=== PATIENT | female | born 1950 | race Caucasian/White ===

== ENCOUNTER 2023-08-30 12:46 | Inpatient (IN) | payer OTHER, MEDICARE ==
[~2023-08-30] VITALS: Ht 167.6 cm; Wt 97.5 kg
[~2023-08-30 12:46] MED LIST: CYCL10; POTCHL20ER; TRAM50; TRAZ50
[2023-08-30 17:19] VITALS: BP 173/95
[2023-08-30] MEDS ORDERED: ELIQUIS5 M3 (18:00)
[2023-08-30] MEDS ORDERED: TRAM50 PO (18:01)
[2023-08-30] MEDS ORDERED: Bentyl10 MG (18:01)
[2023-08-30] MEDS ORDERED: NEURONTIN300 MG PO (18:02)
[2023-08-30] MEDS ORDERED: MONT10T (18:02)
[2023-08-30] MEDS ORDERED: METOPROLOL SUCC25 MG PO (18:03)
[2023-08-30] MEDS ORDERED: Doxepin HC10 MG/1 ML PO (18:04)
--- NOTE | 2023-08-30 18:31 | NUR ---
SHIFT SUMMARY NEW ADMIT THIS AFTERNOON FOR R HIP FX, NPO AFTER MIDNIGHT.MEDICATED FOR PAIN, DR HAWKINS AND ANESTHESIA CAME TO BEDSIDE FOR NERVE BLOCK. PATIENT PAIN MANAGED AND ADMISSION HX FINISHED.VSS, ON 2L NC SATS 95%. PAIN 12/15.R LEG EXTERNALLY ROTATED AND SHORTENED. BED ALARM ON FOR SAFETY CALL LIGHT IN REACH.
[2023-08-30 19:07] VITALS: BP 156/88
[2023-08-31] VITALS (18 sets, daily range): BP systolic 94–138; BP diastolic 56–83
[2023-08-31 04:47] LABS: BASOPHILS ABSOLUTE AUTO 0.04 K/mm3 (0.00-0.23); BASOPHILS PERCENT AUTO 1 % (0-2); EOSINOPHILS ABSOLUTE AUTO 0.04 K/mm3 (0.00-0.68); EOSINOPHILS PERCENT AUTO 1 % (0-6); Hematocrit 37.6 % (33.0-51.0); Hemoglobin 12.3 g/dL (11.5-16.0); IMMATURE GRAN ABSOLUTE AUTO 0.02 K/mm3 (0.00-0.10); IMMATURE GRAN PERCENT AUTO 0 % (0-1); LYMPHOCYTES ABSOLUTE AUTO 0.84 K/mm3 (0.84-5.20); LYMPHOCYTES PERCENT AUTO 11 % (21-46); MONOCYTES ABSOLUTE AUTO 0.42 K/mm3 (0.16-1.47); MONOCYTES PERCENT AUTO 5 % (4-13); Mean Corpuscular HGB 29.9 pg (26.0-34.0); Mean Corpuscular HGB Conc 32.7 g/dL (31.5-36.5); Mean Corpuscular Volume 92 fL (80-100); Mean Platelet Volume 9.7 fL (9.1-12.4); NEUTROPHILS ABSOLUTE AUTO 6.65 K/mm3 (1.96-9.15); NEUTROPHILS PERCENT AUTO 83 % (41-73); Platelet Count 190 K/mm3 (150-400); RDW Coefficient Variation 11.9 % (11.7-14.2); RDW Standard Deviation 39.8 fL (35.1-46.3); Red Blood Cell Count 4.11 M/mm3 (3.80-5.20); White Blood Cell Count 8.01 K/mm3 (4.00-11.30)
[2023-08-31 05:36] LABS: Albumin, Blood 3.1 g/dL (3.4-5.0); Albumin/Globulin Ratio 1.1 (0.8-1.8); Bilirubin, Total 0.6 mg/dL (0.1-1.0); Calcium, Blood 8.9 mg/dL (8.5-10.1); Globulin, Blood 2.9 g/dL (2.2-4.0); Potassium, Blood 4.1 mmol/L (3.5-5.5)
--- NOTE | 2023-08-31 06:45 | NUR ---
SHIFT SUMMARY PT DID WELL OVERNIGHT WITH PAIN BEING CONTROLLED WITH BOTH IV AND PO MEDICATIONS. PT REPORTED NO NAUSEA THIS SHIFT. BLOOD CONSENT FORM SIGNED FOR POTENTIAL PROCEDURE TODAY. PT NPO SINCE MIDNIGHT.
--- NOTE | 2023-08-31 12:25 | NUR ---
PATIENT IS BEING TAKEN DOWN TO THE OR.
--- NOTE | 2023-08-31 15:26 | NUR ---
PATIENT ARRIVED FROM PACU TODAY. POD 0 RIGHT ANNA HIP PATIENT IS DROWSY BUT RESPONDS TO VERBAL STIMULI. SHE IS ON 2L NC WITH >90% OXYGEN SATS. HER RIGHT HIP HAS AN AQUACEL THAT IS C/D/I. SHE IS ABLE TO MOVE ALL FINGERS AND TOES WHEN ASKED. SHE IS TOLERATING SMALL AMOUNTS OF PO INTAKE. SHE IS LAYING IN BED WITH CALL LIGHT IN REACH AND DAUGHTER AT BEDSIDE.
--- NOTE | 2023-08-31 17:10 | NUR ---
SHIFT SUMMARY: POD 0 RIGHT ANNA HIP - POSTERIOR PATIENT IS DROWSY BUT RESPONDS TO VERBAL STIMULI. VS ARE WNL. PAIN IS MANAGED WITH PO OXY AT THIS TIME. HER RIGHT HIP HAS AN AQUACEL THAT IS C/D/I. SHE IS ABLE TO MOVE ALL FINGERS AND TOES WHEN ASKED. DENIES NUMBNESS OR TINGLING. SHE IS TOLERATING SMALL AMOUNTS OF PO INTAKE. SHE IS LAYING DOWN IN BED WITH CALL LIGHT IN REACH AND DAUGHTER AT BEDSIDE. THE PLAN IS TO CONTINUE PAIN MANAGEMENT AND TO BE EVALUATED BY PHYSICAL/OCCUPATIONAL THERAPY.
--- NOTE | 2023-08-31 23:32 | NUR ---
PT REFUSED STAFF TO RECHECK BP. RN NOTIFIED
[2023-09-01 04:07] VITALS: BP 112/66
[2023-09-01 04:14] LABS: BASOPHILS ABSOLUTE AUTO 0.01 K/mm3 (0.00-0.23); BASOPHILS PERCENT AUTO 0 % (0-2); EOSINOPHILS PERCENT AUTO 0 % (0-6); Hematocrit 33.2 % (33.0-51.0); Hemoglobin 11.1 g/dL (11.5-16.0); IMMATURE GRAN ABSOLUTE AUTO 0.02 K/mm3 (0.00-0.10); IMMATURE GRAN PERCENT AUTO 0 % (0-1); LYMPHOCYTES ABSOLUTE AUTO 0.45 K/mm3 (0.84-5.20); LYMPHOCYTES PERCENT AUTO 5 % (21-46); MONOCYTES ABSOLUTE AUTO 0.41 K/mm3 (0.16-1.47); MONOCYTES PERCENT AUTO 4 % (4-13); Mean Corpuscular HGB 30.7 pg (26.0-34.0); Mean Corpuscular HGB Conc 33.4 g/dL (31.5-36.5); Mean Corpuscular Volume 92 fL (80-100); Mean Platelet Volume 9.6 fL (9.1-12.4); NEUTROPHILS ABSOLUTE AUTO 9.08 K/mm3 (1.96-9.15); NEUTROPHILS PERCENT AUTO 91 % (41-73); Platelet Count 171 K/mm3 (150-400); RDW Coefficient Variation 11.7 % (11.7-14.2); RDW Standard Deviation 39.8 fL (35.1-46.3); Red Blood Cell Count 3.61 M/mm3 (3.80-5.20); White Blood Cell Count 9.97 K/mm3 (4.00-11.30)
[2023-09-01 04:50] LABS: Bun/Creatinine Ratio 17.6 (12.0-20.0); Calcium, Blood 8.8 mg/dL (8.5-10.1); Creatinine, Blood 1.02 mg/dL (0.40-1.00); Potassium, Blood 4.4 mmol/L (3.5-5.5)
--- NOTE | 2023-09-01 06:32 | NUR ---
SHIFT SUMMMARY NO ACUTE CHANGES TO REPORT OVERNIGHT, PT HAS RESTED OFF AND ON T/O THE SHIFT. S/P RIGHT HIP REPAIR. PT VERY PAINFUL WITH MOVEMENT. MEDICATED FOR PAIN PER EMAR. DRESSING C/D/I TO RIGHT HIP. PT DENIES N/T IN EXT, ABLE TO WIGGLE TOES. PT WEARS HOME CPAP T/O THE NIGHT. PT OCCASIONALLY DIPPED DOWN INTO THE UPPER 80'S. CALLED RT AND NOTIFIED. THEY RECOMMENDED O2 BLEED IN. PT REFUSED TO HAVE O2 SET UP WITH CPAP, STATING THAT IT MAKES HER NOSE DRY. PT EVENTUALLY TOOK CPAP OFF AND SLEPT WITHOUT IT. TEA BIOX IN PLACE. SATS MAINTAINED WNL WITHOUT CPAP. PT TOLERATING PO INTAKE, AND IS VOIDING ADEQUATELY. BED IN LOWEST POSITION, CALL LIGHT WITHIN REACH.
[2023-09-01 07:32] VITALS: BP 125/64
[2023-09-01 16:22] VITALS: BP 107/66
--- NOTE | 2023-09-01 16:50 | NUR ---
PT AOX4 AND COOPERATIVE OF CARE. PT HAS BEEN DOING WELL TODAY. TREATING R HIP PAIN PER MASON DUMONT DOING WELL AT THIS TIME. NO DISTRESS NOTED WHEN AT REST. PT DOES HAVE PAIN RATED AT A 7 WHEN PT WAS WORKING WITH HER TO STAND. PT WAS STILL WILLING TO DO WHAT SHE NEEDED TO. CALL LIGHT IS WITHIN REACH WILL CONTINUE TO MONITOR.
--- NOTE | 2023-09-01 17:39 | NUR ---
CARE PASSED OVER TO PHYLLIS FROST.
[2023-09-01 18:31] VITALS: BP 98/59
--- NOTE | 2023-09-01 19:12 | NUR ---
SHIFT SUMMARY TOOK OVER CARE AT 1740, PT A&OX4, CHARLETTE, 2 PP SBA TRANSFER FROM CHAIR TO BED, PAIN TREATED PER EMAR. REPORT TO RICARDO FERGUSON.
[2023-09-02 03:13] VITALS: BP 125/67
[2023-09-02 04:27] LABS: BASOPHILS ABSOLUTE AUTO 0.02 K/mm3 (0.00-0.23); BASOPHILS PERCENT AUTO 0 % (0-2); EOSINOPHILS ABSOLUTE AUTO 0.17 K/mm3 (0.00-0.68); EOSINOPHILS PERCENT AUTO 3 % (0-6); Hemoglobin 10.7 g/dL (11.5-16.0); IMMATURE GRAN ABSOLUTE AUTO 0.01 K/mm3 (0.00-0.10); IMMATURE GRAN PERCENT AUTO 0 % (0-1); LYMPHOCYTES ABSOLUTE AUTO 0.68 K/mm3 (0.84-5.20); LYMPHOCYTES PERCENT AUTO 12 % (21-46); MONOCYTES ABSOLUTE AUTO 0.35 K/mm3 (0.16-1.47); MONOCYTES PERCENT AUTO 6 % (4-13); Mean Corpuscular HGB 30.9 pg (26.0-34.0); Mean Corpuscular HGB Conc 33.4 g/dL (31.5-36.5); Mean Corpuscular Volume 93 fL (80-100); Mean Platelet Volume 9.7 fL (9.1-12.4); NEUTROPHILS PERCENT AUTO 79 % (41-73); Platelet Count 157 K/mm3 (150-400); RDW Coefficient Variation 11.9 % (11.7-14.2); Red Blood Cell Count 3.46 M/mm3 (3.80-5.20); White Blood Cell Count 5.83 K/mm3 (4.00-11.30)
[2023-09-02 04:51] LABS: Albumin, Blood 2.5 g/dL (3.4-5.0); Anion Gap 4 mmol/L (6-16); Blood Urea Nitrogen 19 mg/dL (8-24); Bun/Creatinine Ratio 17.9 (12.0-20.0); CO2, Blood 28 mmol/L (21-32); Calcium, Blood 8.6 mg/dL (8.5-10.1); Chloride, Blood 110 mmol/L (98-108); Creatinine, Blood 1.06 mg/dL (0.40-1.00); Glomerular Filtration Rate 56 (60-); Glucose, Blood 88 mg/dL (70-99); Phosphorus, Blood 2.7 mg/dL (2.5-4.9); Potassium, Blood 3.9 mmol/L (3.5-5.5); Sodium, Blood 142 mmol/L (136-145)
--- NOTE | 2023-09-02 05:21 | NUR ---
SHIFT SUMMARY NO ACUTE CHANGES TO REPORT OVERNIGHT. PT COMPLAINS OF R HIP/LEG PAIN THAT IS RELEIVED WITH MEDS PER EMAR. PT HAS BEEN UP TO THE BSC WITH 2 PA, PT PAINFUL AND MOVES SLOWLY, BUT IS ABLE TO MAKE IT TO THE COMMODE AND BACK WITH MODERATE ASSIST. VITALS ARE STABLE. DRESSING C/D/I TO RIGHT. PLAN IS FOR DC SNF. BED IN LOWEST POSITION, CALL LIGHT WITHIN REACH.
[2023-09-02 08:08] VITALS: BP 131/77
--- NOTE | 2023-09-02 11:19 | NUR ---
HOSPITALIST DR PATTEN REP PT C/O INCREASED PAIN POSTOP, ASKS ME TO CONTACT DR HAWKINS RE SAME. TELEPHONE CALL WITH DR HAWKINS; ASKED ME TO ASK PT IF SHE FELL OR HAD ANYTHING UNUSUAL HAPPEN POSTOP? PT STATED NO. CAN PT STILL PARTICIPATE IN THERAPY AND GET OUT OF BED? YES, PT CAN AMB WITH SBA AND FWW/GB. DR HAWKINS STATED AND I RELAYED TO PT THAT IT MOST LIKELY IS POD2 EFFECT OF THE LOCAL BLOCK WEARING OFF.
[2023-09-02] MEDS ORDERED: Acetaminophen650 M1 PO (14:40)
[2023-09-02] MEDS ORDERED: Robaxin750 MG PO (14:42)
[2023-09-02 15:05] VITALS: BP 111/67
--- NOTE | 2023-09-02 18:15 | NUR ---
SHIFT SUMMARY PT A&OX4, VSS/RA, CHARLETTE PO, VOIDING/BSC, AMB SBA FWW, UP TO CHAIR T/O SHIFT, PAIN MANAGED WITH PO PAIN MEDS. POD2 R ANNA HIP, AQUACEL DRY/INTACT, WBAT. WILL REPORT TO ONCOMING NOC RN.
[2023-09-02 19:41] VITALS: BP 119/70
[2023-09-03 03:50] VITALS: BP 112/62
[2023-09-03 04:14] LABS: BASOPHILS ABSOLUTE AUTO 0.05 K/mm3 (0.00-0.23); BASOPHILS PERCENT AUTO 1 % (0-2); EOSINOPHILS ABSOLUTE AUTO 0.27 K/mm3 (0.00-0.68); EOSINOPHILS PERCENT AUTO 5 % (0-6); Hematocrit 31.6 % (33.0-51.0); Hemoglobin 10.4 g/dL (11.5-16.0); IMMATURE GRAN ABSOLUTE AUTO 0.03 K/mm3 (0.00-0.10); IMMATURE GRAN PERCENT AUTO 1 % (0-1); LYMPHOCYTES ABSOLUTE AUTO 1.08 K/mm3 (0.84-5.20); LYMPHOCYTES PERCENT AUTO 22 % (21-46); MONOCYTES ABSOLUTE AUTO 0.41 K/mm3 (0.16-1.47); MONOCYTES PERCENT AUTO 8 % (4-13); Mean Corpuscular HGB 30.9 pg (26.0-34.0); Mean Corpuscular HGB Conc 32.9 g/dL (31.5-36.5); Mean Corpuscular Volume 94 fL (80-100); Mean Platelet Volume 10.2 fL (9.1-12.4); NEUTROPHILS ABSOLUTE AUTO 3.14 K/mm3 (1.96-9.15); NEUTROPHILS PERCENT AUTO 63 % (41-73); Platelet Count 189 K/mm3 (150-400); RDW Coefficient Variation 11.9 % (11.7-14.2); RDW Standard Deviation 40.9 fL (35.1-46.3); Red Blood Cell Count 3.37 M/mm3 (3.80-5.20); White Blood Cell Count 4.98 K/mm3 (4.00-11.30)
--- NOTE | 2023-09-03 07:48 | NUR ---
POD 3 S/P RIGHT ANNA HIP. PT VSS T/O NIGHT. DRESSING CDI, W/MILD BRUISING AND SWELLING NOTED. PT DENIED N/T, CAP REFILL WNL. PAIN MGD PER EMAR W/REP RELIEF. PT UP OOB W/FWW+1 MOD ASSIST. PLAN TO MOBILIZE W/PT AND AWAIT DC PLANS.
[2023-09-03 07:49] VITALS: BP 120/71
[2023-09-03 14:56] VITALS: BP 137/72
--- NOTE | 2023-09-03 18:00 | NUR ---
SHIFT SUMMARY POD3 R HIP PINNING.DANDRE TO R HIP C/D/I. WORKED WITH PT AND OT TODAY. TOLERATING PO INTAKE AND PAIN MANAGED WITH PO MEDICATIONS. AWAITING SNF PLACEMENT. PATIENT IS A 1 SBA W/GB, AND FWW. IV SALINE LOCKED. VSS, CALL LIGHT IN REACH.
[2023-09-03 19:51] VITALS: BP 111/67
[2023-09-04 04:41] VITALS: BP 136/78
--- NOTE | 2023-09-04 05:02 | NUR ---
SHIFT SUMMARY POD4 RIGHT ANNA HIP. AQUACEL IS C/D/I. SENSATION AND CIRCULATION IS INTACT IN RLE. VSS. PT SLEPT WELL T/O THE NIGHT. MEDICATED FOR PAIN WITH TRAMADOL AND TYLENOL. PT AMBULATING TO BATHROOM AND VOIDING W/O DIFFICULTY. NO ACUTE EVENTS T/O THE NIGHT. PLAN TO D/C TO [facility] UPON INSURANCE APPROVAL. THE PATIENT IS CURRENTLY RESTING, IN NO DISTRESS, CALL LIGHT IN REACH
[2023-09-04 08:04] VITALS: BP 141/89
[2023-09-04 15:16] VITALS: BP 171/82
[2023-09-04 16:24] VITALS: BP 136/80
== END 2023-09-04 17:15 | DRG 522 ==
LOC: ER 12:46 → SURS 15:56
PROVIDERS: Family Medicine; Orthopaedic Surgery; ADMIT Internal Medicine
PROC: 0SRR01Z Replacement of Right Hip Joint, Femoral Surface with Metal Synthetic Substitute, Open Approach (ICD-10-PCS; principal; 2023-08-31 12:30)
DX: S72.031A Displaced midcervical fracture of right femur, initial encounter for closed fracture (principal); G89.29 Other chronic pain; M79.7 Fibromyalgia; K58.9 Irritable bowel syndrome, unspecified; E66.9 Obesity, unspecified; G47.30 Sleep apnea, unspecified; I48.91 Unspecified atrial fibrillation; M19.90 Unspecified osteoarthritis, unspecified site; G47.00 Insomnia, unspecified; G43.909 Migraine, unspecified, not intractable, without status migrainosus; W01.0XXA Fall on same level from slipping, tripping and stumbling without subsequent striking against object, initial encounter; Z88.8 Allergy status to other drugs, medicaments and biological substances; Z88.6 Allergy status to analgesic agent; Z88.7 Allergy status to serum and vaccine; Z98.84 Bariatric surgery status; Z95.3 Presence of xenogenic heart valve; Z79.01 Long term (current) use of anticoagulants; Z68.34 Body mass index [BMI] 34.0-34.9, adult
CPT/HCPCS: 36415; 72170; 73502; 80048; 80053; 80069; 85025; 93005; 93010; 94660; 94762; 96374; 96376; 97110; 97163; 97166; 97530; 97535; 99285-25; A9270; C1713; C1776; J0171; J0690; J0735; J1100; J1170; J1644; J1885; J2250; J2371; J2405; J2704; J2795; J3010; J7120